=== PATIENT | male | born 1960 | race Two or more races ===

== ENCOUNTER 2018-03-24 13:18 | Emergency (ER) | payer MEDICAID, OTHER ==
[~2018-03-24] VITALS: Ht 182.9 cm; Wt 82.6 kg
[2018-03-24 13:30] VITALS: BP 148/76
== END 2018-03-24 14:50 | disposition home or self-care (01) ==
LOC: ER 13:20
DX: R06.6 Hiccough (principal); I10 Essential (primary) hypertension; F12.90 Cannabis use, unspecified, uncomplicated; I25.2 Old myocardial infarction; Z87.442 Personal history of urinary calculi; Z95.818 Presence of other cardiac implants and grafts
CPT/HCPCS: 99283; A4606; Z7610